=== PATIENT | male | born 1965 | race Caucasian/White ===

== ENCOUNTER 2016-12-04 12:47 | Outpatient (CLI) | payer MEDICAID | END 2016-12-04 12:48 | disposition critical access hospital (66) | LOC: EMS 12:47 | PROVIDERS: ATTEND Surgery | DX: R06.02 Shortness of breath (principal); L50.9 Urticaria, unspecified; R03.1 Nonspecific low blood-pressure reading | CPT/HCPCS: A0425; A0427 ==

== ENCOUNTER 2016-12-04 13:11 | Emergency (ER) | payer MEDICAID ==
[2016-12-04] MEDS ORDERED: SODIUM CHLORIDE 0.9% 1,000 ML IV ONE (13:23)
[2016-12-04] MEDS ORDERED: methylPREDNISolone SUCCINATE 125 MG/2 ML VIAL IVP STA (13:23)
[2016-12-04] MEDS ORDERED: FAMOTIDINE 20 MG/2 ML VIAL IVP STA (13:23)
[2016-12-04] MEDS ORDERED: NICOTINE 14 MG PATCH TOP STA (13:26)
--- NOTE | 2016-12-04 13:26 | ED Physician Documentation ---
History of Present Illness - Stated complaint Stated Complaint: ANAPHYLAXIS - Chief complaint Chief Complaint: Allergic Rx - History obtained from History obtained from: Patient - History of Present Illness Timing: Other (Healthy 50-year-old gentleman was putting on a shirt that he had not worn in a while and felt a bite or sting on the back of the left arm and immediately became hot all over with hives throughout and feeling like his face was numb. EMS was summoned and found him to be in anaphylaxis and he was administered 0.3 mg of epinephrine IM and 50 mg of Benadryl IV and put on epinephrine drip. He denies any throat swelling or shortness of breath at this juncture. He is not allergic to anything that we know of.) Review of Systems Ten Systems: 10 systems reviewed and negative Constitutional: denies: Fever, Chills Nose: denies: Rhinorrhea / runny nose, Congestion Throat: denies: Sore throat Cardiac: reports: Chest pain / pressure (gone). denies: Palpitations PD PAST MEDICAL HISTORY - Past Medical History Neuro: CVA GI: Hepatitis Psych: Depression - Past Surgical History Past Surgical History: No - Present Medications Home Medications: Ambulatory Orders Medication Instructions Recorded Confirmed Escitalopram Oxalate [Lexapro] 20 mg PO DAILY 09/26/15 09/26/15 Meclizine [Antivert] 25 mg PO Q6H #14 tablet 09/26/15 Ondansetron Odt [Zofran] 4 mg TL Q6H PRN #14 tablet 09/26/15 Epinephrine 0.3 mg IJ ONCE PRN #2 auto.injct 12/04/16 predniSONE [Deltasone] 60 mg PO DAILY 5 Days tablet 12/04/16 - Allergies Allergies/Adverse Reactions: Allergies Allergy/AdvReac Type Severity Reaction Status Date / Time No Known Drug Allergies Allergy Verified 12/04/16 13:15 - Social History Does the pt smoke?: Yes Smoking Status: Current every day smoker - Family History Family history: reports: Non contributory - Immunizations Immunizations are current?: No Immunizations: TDAP >10years/unknown PD ED PE NORMAL - Vitals Vital signs reviewed: Yes - General General: Alert and oriented X 3, No acute distress - HEENT HEENT: PERRL, EOMI, Pharynx benign - Neck Neck: Supple, no meningeal sign, No bony TTP - Cardiac Cardiac: RRR, No murmur - Respiratory Respiratory: No respiratory distress, Clear bilaterally - Abdomen Abdomen: Normal bowel sounds, Soft, Non tender - Back Back: No CVA TTP, No spinal TTP - Derm Derm: Other (He has diffuse urticaria) - Extremities Extremities: No edema, No calf tenderness / cord - Neuro Neuro: Alert and oriented X 3, Normal speech - Psych Psych: Normal mood, Normal affect Results - Vitals Vitals: Vital Signs - 24 hr 12/04/16 12/04/16 12/04/16 13:11 13:16 13:38 Temperature 36.8 C Heart Rate 70 69 Respiratory 20 17 Rate Blood Pressure 113/68 120/71 O2 Saturation 90 L 93 95 12/04/16 12/04/16 12/04/16 14:19 14:21 15:24 Temperature 36.6 C 37.0 C Heart Rate 63 78 Respiratory 13 15 Rate Blood Pressure 109/67 113/97 H O2 Saturation 98 98 12/04/16 12/04/16 16:26 17:16 Temperature 36.3 C L 36.5 C Heart Rate 65 80 Respiratory 12 14 Rate Blood Pressure 105/60 141/67 H O2 Saturation 99 99 Oxygen O2 Source Room air PD MEDICAL DECISION MAKING - ED course ED course: 50-year-old gentleman presents with anaphylaxis with unknown trigger, he received Solu-Medrol here in addition to the medications he received in route. Epinephrine drip was discontinued on arrival. He was observed for several hours without any worsening of his symptoms and gradual improvement in his rash. Departure - Departure Disposition: 01 Home, Self Care Clinical Impression: Anaphylactic reaction Qualifiers: Encounter type: initial encounter Qualified Code(s): T78.2XXA - Anaphylactic shock, unspecified, initial encounter Condition: Good Record reviewed to determine appropriate education?: Yes Instructions: ED Bite Sting Insect Gen Allergic React Prescriptions: Epinephrine 0.3 mg IJ ONCE PRN #2 auto.injct PRN Reason: Allergy Symptoms predniSONE [Deltasone] 60 mg PO DAILY 5 Days tablet Comments: Call your doctor to arrange a follow-up appointment, make the next available appointment. In the interim, return anytime if worse or if new symptoms develop. Discharge Date/Time: 12/04/16 17:39
[2016-12-04] MEDS ORDERED: methylPREDNISolone SUCCINATE 125 MG/2 ML VIAL ONE (13:33)
[2016-12-04] MEDS ORDERED: FAMOTIDINE 20 MG/2 ML VIAL ONE (13:33)
[2016-12-04] MEDS ORDERED: NICOTINE 14 MG PATCH TOP ONE (13:33)
[2016-12-04] MEDS ORDERED: SODIUM CHLORIDE FLUSH 0.9% 10 ML SYRINGE IVP ONE (13:34)
[2016-12-04 17:17] VITALS: BP 141/67
== END 2016-12-04 17:39 | disposition home or self-care (01) ==
LOC: ED 13:11
DX: T78.2XXA Anaphylactic shock, unspecified, initial encounter (principal); F17.200 Nicotine dependence, unspecified, uncomplicated
CPT/HCPCS: 96374; 96375; 99284; A9270

== ENCOUNTER 2016-12-15 08:00 | Outpatient (CLI) | payer MEDICAID | END 2016-12-15 08:01 | disposition home or self-care (01) | LOC: LAB.N 08:00 | PROVIDERS: ATTEND Nurse Practitioner Gerontology | DX: B19.20 Unspecified viral hepatitis C without hepatic coma (principal) | CPT/HCPCS: 36415; 87522 ==

== ENCOUNTER 2019-02-26 18:04 | Emergency (ER) | payer MEDICAID ==
[2019-02-26] MEDS ORDERED: BACITRACIN ZINC OINT 1 PACKET TOP STA (19:21)
[2019-02-26] MEDS ORDERED: oxyCODONE 5 MG TABLET PO STA (19:21)
[2019-02-26] MEDS ORDERED: AMOX/CLAV 875 MG/125 MG TABLET PO STA (19:21)
--- NOTE | 2019-02-26 19:23 | ED Physician Documentation ---
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 He was in [place] working when he noticed a blister starting to form on the left thumb. He states that this filled with pus. He drained it himself with a needle. He states that it has been doing better since that time, but started having swelling and redness to the area again today. No fevers. Tetanus is up-to-date. Worse with movement and better with rest. Patient is right-handed Patient also states that he has been out of his Lexapro for the last month. Review of Systems Constitutional: denies: Fever, Chills GI: denies: Vomiting, Diarrhea Skin: denies: Rash Musculoskeletal: denies: Neck pain, Back pain Neurologic: denies: Headache PD PAST MEDICAL HISTORY - Past Medical History Past Medical History: Yes Cardiovascular: None Respiratory: None Neuro: None Endocrine/Autoimmune: None GI: Hepatitis : None HEENT: None Psych: Depression Musculoskeletal: None Derm: None - Past Surgical History Past Surgical History: No - Present Medications Home Medications: Ambulatory Orders Medication Instructions Recorded Confirmed Escitalopram Oxalate [Lexapro] 20 mg PO DAILY 09/26/15 09/26/15 Meclizine [Antivert] 25 mg PO Q6H #14 tablet 09/26/15 Ondansetron Odt [Zofran] 4 mg TL Q6H PRN #14 tablet 09/26/15 EPINEPHrine [Epinephrine] 0.3 mg IJ ONCE PRN #2 auto.injct 12/04/16 predniSONE [Deltasone] 60 mg PO DAILY 5 Days tablet 12/04/16 Cephalexin [Keflex] 500 mg PO Q6H #28 capsule 02/26/19 Escitalopram [Lexapro] 10 mg PO DAILY #14 tablet 02/26/19 Oxycodone HCl/Acetaminophen 1 - 2 each PO Q6H PRN #14 tablet 02/26/19 [Percocet 5-325 mg Tablet] Sulfamethox/Trimeth 800/160 1 each PO BID #14 tablet 02/26/19 [Bactrim Ds 800/160] - Allergies Allergies/Adverse Reactions: Allergies Allergy/AdvReac Type Severity Reaction Status Date / Time No Known Drug Allergies Allergy Verified 02/26/19 18:16 - Social History Does the pt smoke?: Yes Smoking Status: Current every day smoker Does the pt drink ETOH?: Yes Does the pt have substance abuse?: No - Immunizations Immunizations are current?: No Immunizations: TDAP >10years/unknown - POLST Patient has POLST: No PD ED PE NORMAL - Vitals Vital signs reviewed: Yes - General General: Alert and oriented X 3, No acute distress - HEENT HEENT: Moist mucous membranes - Neck Neck: Supple, no meningeal sign - Cardiac Cardiac: RRR - Respiratory Respiratory: No respiratory distress, Clear bilaterally - Derm Derm: Warm and dry - Extremities Extremities: Other (L thumb - 2 x 3 cm area of open skin with mild redness. No streaking. No evidence of deep space infection in the hand. No tenderness over the palm. Full range of motion of all fingers and joints without pain.) - Neuro Neuro: Alert and oriented X 3 Results - Vitals Vitals: Vital Signs - 24 hr 02/26/19 02/26/19 02/26/19 18:14 18:38 20:06 Temperature 36.7 C 36.4 C L 36.3 C L Heart Rate 81 75 89 Respiratory 16 18 16 Rate Blood Pressure 120/79 98/83 H 112/79 O2 Saturation 98 98 93 Oxygen O2 Source Room air PD MEDICAL DECISION MAKING - ED course Complexity details: considered differential, d/w patient ED course: Patient appears to have a mild cellulitis of the left thumb. Will place on antibiotics and pain medication for this. He is well-appearing, nontoxic. Afebrile. No evidence of osteomyelitis. Tdap is up-to-date. We will refill his Lexapro as well. Warnings of infection and instructions on wound care given at bedside. Also counseled on how to minimize scarring. Patient counseled regarding signs and symptoms for which I believe and urgent re-evaluation would be necessary. Patient with good understanding of and agreement to plan and is comfortable going home at this time This document was made in part using voice recognition software. While efforts are made to proofread this document, sound alike and grammatical errors may occur. Departure - Departure Disposition: 01 Home, Self Care Clinical Impression: Cellulitis Qualifiers: Site of cellulitis: extremity Site of cellulitis of extremity: upper extremity Laterality: left Qualified Code(s): L03.114 - Cellulitis of left upper limb Condition: Good Instructions: ED Infec Skin Cellulitis Follow-Up: Alana Valdez ARNP [Primary Care Provider] - Within 3 Days Prescriptions: Cephalexin [Keflex] 500 mg PO Q6H #28 capsule Escitalopram [Lexapro] 10 mg PO DAILY #14 tablet Oxycodone HCl/Acetaminophen [Percocet 5-325 mg Tablet] 1 - 2 each PO Q6H PRN #14 tablet PRN Reason: pain Sulfamethox/Trimeth 800/160 [Bactrim Ds 800/160] 1 each PO BID #14 tablet Comments: Take all antibiotics until gone. Return if you worsen. Call the clinic on Thursday to find out your Lexapro dose of that they can call in a refill for you. As we do not know your dose tonight, or know if they want to taper you back up to your usual dose, we will have them handle the refill. Do not drink alcohol or drive while on narcotic pain medicine. Note that many narcotic pain relievers also contain tylenol/acetaminophen. Please ensure that your total dose of acetaminophen from all sources does not exceed 3 grams (3000mg) per day. You may constipated on this medication, take a stool softener such as "Colace" twice a day while you are on it. Also recommend a dvqk-smy-wzwmcle laxative such as senna or MiraLAX any day that you do not have a bowel movement. If you received narcotic pain medication in the emergency department, do not drive or operate machinery for the next 24 hours. Discharge Date/Time: 02/26/19 20:21
[2019-02-26 20:07] VITALS: BP 112/79
== END 2019-02-26 20:21 | disposition home or self-care (01) ==
LOC: ED 18:04
DX: L03.012 Cellulitis of left finger (principal); Z76.0 Encounter for issue of repeat prescription; F32.9 Major depressive disorder, single episode, unspecified; F17.200 Nicotine dependence, unspecified, uncomplicated
CPT/HCPCS: 99283; 99284; A9270

== ENCOUNTER 2019-03-10 13:34 | Outpatient (CLI) | payer MEDICAID ==
--- NOTE | 2019-03-10 15:19 | XRAY Report ---
Reason: CELLULITIS Procedure Date: 03/10/2019 Accession Number: [id number] / [id number] Procedure: XRN - Hand 3 View LT CPT Code: Final Report FULL RESULT: EXAM: LEFT HAND RADIOGRAPHY. EXAM DATE: 03/10/2019 01:58 PM. CLINICAL HISTORY: Cellulitis. COMPARISON: None. TECHNIQUE: 3 views. FINDINGS: Bones: Normal. No fractures or bone lesions. Joints: Normal. No subluxations. Soft Tissues: No soft tissue gas or radiopaque foreign bodies detected. IMPRESSION: No soft tissue gas or radiopaque foreign body. RADIA
== END 2019-03-10 13:35 | disposition home or self-care (01) ==
LOC: DI.N 13:34
PROVIDERS: ATTEND Family Medicine
DX: L03.90 Cellulitis, unspecified (principal); B19.20 Unspecified viral hepatitis C without hepatic coma; L03.012 Cellulitis of left finger
CPT/HCPCS: 36415; 80076; 85027; 85651; 86140; 86803

== ENCOUNTER 2019-03-10 14:00 | Outpatient (CLI) | payer MEDICAID ==
[2019-03-10 18:37] LABS: HGB - HEMOGLOBIN 13.2 g/dL (14.0-18.0); MEAN CORPUSCULAR HEMOGLOBIN 30.8 pg (27.0-31.0); MEAN CORPUSCULAR HGB CONC 33.2 g/dL (32.0-36.0); MEAN CORPUSCULAR VOLUME 92.5 fL (80.0-94.0); MEAN PLATELET VOLUME 10.8 fL (7.4-11.4); RED BLOOD COUNT 4.29 10^6/uL (4.70-6.10); RED CELL DISTRIBUTION WIDTH 12.8 % (12.0-15.0); WHITE BLOOD COUNT 5.2 x10^3/uL (4.8-10.8)
[2019-03-10 19:08] LABS: ALBUMIN 3.6 g/dL (3.2-5.5); ALKALINE PHOSPHATASE 104 IU/L (42-121); ALT ALANINE AMINOTRANSFERASE 384 IU/L (10-60); AST ASPARTATE AMINOTRANSFERASE 238 IU/L (10-42); BILIRUBIN,DIRECT 0.1 mg/dL (0.1-0.5); BILIRUBIN,TOTAL 0.6 mg/dL (0.2-1.0); TOTAL PROTEIN 7.3 g/dL (6.7-8.2)
[2019-03-10 19:44] LABS: CRP - C-REACTIVE PROTEIN < 1.0 mg/dL (0-1.0)
[2019-03-11 12:01] LABS: HEPATITIS C ANTIBODY REACTIVE (NON-REACTIVE)
[2019-03-14 18:39] LABS: HCV RNA QNT 5.99 Log IU/mL (NOT DETECTED); HCV RNA QUANT RT PCR 985000 IU/mL (NOT DETECTED)
== END 2019-03-10 23:59 | disposition home or self-care (01) ==
LOC: LAB.N 14:00
PROVIDERS: ATTEND Family Medicine
DX: B19.20 Unspecified viral hepatitis C without hepatic coma (principal); L03.012 Cellulitis of left finger
CPT/HCPCS: 36415; 80076; 85027; 85651; 86140; 86803

== ENCOUNTER 2019-08-07 16:46 | Outpatient (CLI) | payer MEDICAID | END 2019-08-07 16:47 | disposition critical access hospital (66) | LOC: EMS 16:46 | PROVIDERS: ATTEND Surgery | DX: R46.89 Other symptoms and signs involving appearance and behavior (principal) | CPT/HCPCS: A0425; A0429; A0999 ==

== ENCOUNTER 2019-08-07 17:06 | Emergency (ER) | payer MEDICAID ==
[2019-08-07 17:26] LABS: BASOPHILS # (AUTO) 0.1 10^3/uL (0.0-0.1); EOSINOPHILS # (AUTO) 0.3 10^3/uL (0.0-0.7); EOSINOPHILS % (AUTO) 3.4 %; HGB - HEMOGLOBIN 13.8 g/dL (14.0-18.0); LYMPHOCYTES # (AUTO) 3.3 10^3/uL (1.5-3.5); LYMPHOCYTES % (AUTO) 35.3 %; MEAN CORPUSCULAR HEMOGLOBIN 30.5 pg (27.0-31.0); MEAN CORPUSCULAR HGB CONC 33.6 g/dL (32.0-36.0); MEAN CORPUSCULAR VOLUME 90.9 fL (80.0-94.0); MEAN PLATELET VOLUME 9.3 fL (7.4-11.4); MONOCYTES # (AUTO) 1.3 10^3/uL (0.0-1.0); MONOCYTES % (AUTO) 14.2 %; NEUTROPHILS # (AUTO) 4.2 10^3/uL (1.5-6.6); NEUTROPHILS % (AUTO) 45.9 %; PLT - PLATELET COUNT 278 10^3/uL (130-450); RED BLOOD COUNT 4.52 10^6/uL (4.70-6.10); RED CELL DISTRIBUTION WIDTH 12.7 % (12.0-15.0); WHITE BLOOD COUNT 9.2 x10^3/uL (4.8-10.8)
--- NOTE | 2019-08-07 17:37 | ED Physician Documentation ---
PD HPI MHE - Stated complaint Stated Complaint: MHE - Chief complaint Chief Complaint: MHE - History obtained from History obtained from: Patient, EMS - History of Present Illness Primary symptom: No: Suicidal ideation, Homicidal ideation, Psychosis, Depression, Manic, Aggressive behavior Pain level max: 0 Pain level now: 0 Contributing factors: Out of meds Recently seen: Not recently seen - Additional information Additional information: patient states he is out of his lexapro and needs a refill. 20mg PO daily. Denies SI/ HI or hallucinations. Review of Systems Ten Systems: 10 systems reviewed and negative Constitutional: denies: Fever, Chills Respiratory: denies: Cough GI: denies: Nausea, Vomiting, Diarrhea Skin: denies: Rash Musculoskeletal: denies: Neck pain, Back pain Neurologic: denies: Headache PD PAST MEDICAL HISTORY - Past Medical History Cardiovascular: None Respiratory: None Neuro: None Endocrine/Autoimmune: None GI: Hepatitis : None HEENT: None Psych: Depression Musculoskeletal: None Derm: None - Past Surgical History Past Surgical History: No - Present Medications Home Medications: Ambulatory Orders Medication Instructions Recorded Confirmed Escitalopram [Lexapro] 10 mg PO DAILY #14 tablet 02/26/19 Escitalopram Oxalate [Lexapro] 20 mg PO DAILY #14 tablet 08/07/19 - Allergies Allergies/Adverse Reactions: Allergies Allergy/AdvReac Type Severity Reaction Status Date / Time No Known Drug Allergies Allergy Verified 08/07/19 17:26 - Social History Does the pt smoke?: Yes Smoking Status: Current every day smoker Does the pt drink ETOH?: Yes Does the pt have substance abuse?: No - Immunizations Immunizations are current?: No Immunizations: TDAP >10years/unknown - POLST Patient has POLST: No PD ED PE NORMAL - Vitals Vital signs reviewed: Yes - General General: Alert and oriented X 3, No acute distress - HEENT HEENT: Moist mucous membranes - Neck Neck: Supple, no meningeal sign - Cardiac Cardiac: RRR, Strong equal pulses - Respiratory Respiratory: No respiratory distress, Clear bilaterally - Abdomen Abdomen: Soft, Non tender, Non distended - Derm Derm: Warm and dry - Extremities Extremities: No edema - Neuro Neuro: Alert and oriented X 3 - Psych Psych: Normal mood, Normal affect Results - Vitals Vitals: Vital Signs - 24 hr 08/07/19 08/07/19 08/07/19 17:10 17:26 18:47 Temperature 36.6 C 36.6 C 36.6 C Heart Rate 93 93 88 Respiratory 18 18 16 Rate Blood Pressure 127/86 H 127/86 H 126/88 H O2 Saturation 99 99 100 Oxygen O2 Source Room air - Labs Labs: Laboratory Tests 08/07/19 08/07/19 08/07/19 17:20 17:20 17:20 WBC 9.2 RBC 4.52 L Hgb 13.8 L Hct 41.1 L MCV 90.9 MCH 30.5 MCHC 33.6 RDW 12.7 Plt Count 278 MPV 9.3 Neut # (Auto) 4.2 Lymph # (Auto) 3.3 [place] # (Auto) 1.3 H Eos # (Auto) 0.3 Baso # (Auto) 0.1 Absolute Nucleated RBC 0.00 Nucleated RBC % 0.0 Sodium 139 Potassium 3.9 Chloride 99 L Carbon Dioxide 29 Anion Gap 11.0 BUN 29 H Creatinine 0.8 Estimated GFR (MDRD) 101 Glucose 99 Calcium 9.9 Total Bilirubin 0.8 AST 105 H ALT 116 H Alkaline Phosphatase 76 Total Protein 8.8 H Albumin 4.6 Globulin 4.2 Albumin/Globulin Ratio 1.1 Lipase 39 TSH 1.85 Urine Color Urine Clarity Urine pH Ur Specific [place] Urine Protein Urine Glucose (UA) Urine Ketones Urine Occult Blood Urine Nitrite Urine Bilirubin Urine Urobilinogen Ur Leukocyte Esterase Ur Microscopic Review Urine Culture Comments Salicylates < 6.0 Urine Opiates Screen Ur Oxycodone Screen Urine Methadone Screen Ur Propoxyphene Screen Acetaminophen < 10 L Ur Barbiturates Screen Ur Tricyclics Screen Ur Phencyclidine Scrn Ur Amphetamine Screen U Methamphetamines Scrn U Benzodiazepines Scrn Urine Cocaine Screen U Cannabinoids Screen Ethyl Alcohol < 5.0 08/07/19 17:48 WBC RBC Hgb Hct MCV MCH MCHC RDW Plt Count MPV Neut # (Auto) Lymph # (Auto) [place] # (Auto) Eos # (Auto) Baso # (Auto) Absolute Nucleated RBC Nucleated RBC % Sodium Potassium Chloride Carbon Dioxide Anion Gap BUN Creatinine Estimated GFR (MDRD) Glucose Calcium Total Bilirubin AST ALT Alkaline Phosphatase Total Protein Albumin Globulin Albumin/Globulin Ratio Lipase TSH Urine Color YELLOW Urine Clarity CLEAR Urine pH 5.0 Ur Specific [place] >=1.030 H Urine Protein NEGATIVE Urine Glucose (UA) NEGATIVE Urine Ketones NEGATIVE Urine Occult Blood NEGATIVE Urine Nitrite NEGATIVE Urine Bilirubin NEGATIVE Urine Urobilinogen 0.2 (NORMAL) Ur Leukocyte Esterase NEGATIVE Ur Microscopic Review NOT INDICATED Urine Culture Comments NOT INDICATED Salicylates Urine Opiates Screen POSITIVE H Ur Oxycodone Screen NEGATIVE Urine Methadone Screen NEGATIVE Ur Propoxyphene Screen NEGATIVE Acetaminophen Ur Barbiturates Screen NEGATIVE Ur Tricyclics Screen NEGATIVE Ur Phencyclidine Scrn NEGATIVE Ur Amphetamine Screen POSITIVE H U Methamphetamines Scrn POSITIVE H U Benzodiazepines Scrn NEGATIVE Urine Cocaine Screen NEGATIVE U Cannabinoids Screen NEGATIVE Ethyl Alcohol PD MEDICAL DECISION MAKING - ED course Complexity details: reviewed old records, reviewed results, re-evaluated patient, considered differential, d/w patient ED course: Patient denies any suicidal or homicidal statements. Police report was reviewed and it appears that he is here voluntarily. The police report states he does not meet criteria for an involuntary treatment act. There was initially question of suicidal ideation, but upon further investigation with the mother, the police worker states that the patient never stated he was suicidal. He is actually looking forward to starting a new job in the morning. Patient has been using methamphetamine as well. This could be some of the manic type symptoms that were described. He is calm and cooperative here. Appears lucid. He is not tangential. We will restart him on his Lexapro and have him follow-up with his doctor. Patient counseled regarding signs and symptoms for which I believe and urgent re-evaluation would be necessary. Patient with good understanding of and agreement to plan and is comfortable going home at this time This document was made in part using voice recognition software. While efforts are made to proofread this document, sound alike and grammatical errors may oc cur. Departure - Departure Disposition: 01 Home, Self Care Clinical Impression: Bipolar 1 disorder, Methamphetamine abuse Condition: Good Instructions: ED Manic Depression, ED Drug Abuse General Follow-Up: GLADIS ISRAEL MD [Primary Care Provider] - Within 1 week Prescriptions: Escitalopram Oxalate [Lexapro] 20 mg PO DAILY #14 tablet Comments: Please stop using methamphetamines. Follow-up with your doctor for further refills of your Lexapro. Return if you worsen. Crisis Line and is available to talk to someone [email or web address] is also available 24/7/365 to chat with someone online if you prefer. There are also many resources on this website and apps for your phone to help with your mental health You can also text the word START to [phone] to chat with someome via text. Discharge Date/Time: 08/07/19 18:47
[2019-08-07 17:40] LABS: ACETAMINOPHEN < 10 ug/mL (10-30); ALBUMIN 4.6 g/dL (3.2-5.5); ALBUMIN/GLOBULIN RATIO 1.1 (1.0-2.2); ALKALINE PHOSPHATASE 76 IU/L (42-121); ALT ALANINE AMINOTRANSFERASE 116 IU/L (10-60); AST ASPARTATE AMINOTRANSFERASE 105 IU/L (10-42); BILIRUBIN,TOTAL 0.8 mg/dL (0.2-1.0); BUN - BLOOD UREA NITROGEN 29 mg/dL (6-20); CALCIUM 9.9 mg/dL (8.5-10.3); CARBON DIOXIDE - CO2 29 mmol/L (21-32); CHLORIDE 99 mmol/L (101-111); CREATININE 0.8 mg/dL (0.6-1.2); GLUCOSE 99 mg/dL (70-100); LIPASE 39 U/L (22-51); SALICYLATE < 6.0 mg/dL; SODIUM 139 mmol/L (135-145); TOTAL PROTEIN 8.8 g/dL (6.7-8.2)
[2019-08-07] MEDS ORDERED: ESCITALOPRAM 10 MG TABLET PO STA (17:57)
[2019-08-07 18:06] LABS: MUDS CUTOFF CONCENTRATIONS CUTOFF CONC BELOW:
[2019-08-07 18:11] LABS: BILIRUBIN,URINE NEGATIVE (NEGATIVE); GLUCOSE, URINE (UA) NEGATIVE (NEGATIVE); KETONES,URINE (UA) NEGATIVE (NEGATIVE); LEUKOCYTE ESTERASE, URINE NEGATIVE (NEGATIVE); NITRITE,URINE NEGATIVE (NEGATIVE); OCCULT BLOOD,URINE NEGATIVE (NEGATIVE); PROTEIN,URINE NEGATIVE (NEGATIVE); UROBILINOGEN,URINE 0.2 (NORMAL) E.U./dL (NORMAL)
[2019-08-07 18:13] LABS: CLARITY,URINE CLEAR (CLEAR)
[2019-08-07 18:28] LABS: AMPHETAMINE SCREEN,URINE POSITIVE (NEGATIVE); BENZODIAZEPINES SCREEN, URINE NEGATIVE (NEGATIVE); COCAINE SCREEN URINE NEGATIVE (NEGATIVE); METHADONE SCREEN, URINE NEGATIVE (NEGATIVE); METHAMPHETAMINES SCREEN, URINE POSITIVE (NEGATIVE); OPIATE SCREEN, URINE POSITIVE (NEGATIVE); OXYCODONE SCREEN, URINE NEGATIVE (NEGATIVE); PROPOXYPHENE SCREEN, URINE NEGATIVE (NEGATIVE); TRICYCLIC ANTIDEPRESSANT,URINE NEGATIVE (NEGATIVE)
[2019-08-07 18:48] VITALS: BP 126/88
== END 2019-08-07 18:47 | disposition home or self-care (01) ==
LOC: EDUNIT# → ED 17:06
DX: F31.9 Bipolar disorder, unspecified (principal); F15.10 Other stimulant abuse, uncomplicated; F17.200 Nicotine dependence, unspecified, uncomplicated
CPT/HCPCS: 36415; 80053; 80306; 80307; 80320; 80329; 81003; 83690; 84443; 85025; 99283; A9270; 81001; 87086

== ENCOUNTER 2020-01-20 10:23 | Outpatient (CLI) | payer MEDICAID ==
--- NOTE | 2020-01-20 11:38 | Ultrasound Report ---
PROCEDURE: Abdomen Limited INDICATIONS: Hepatitis C TECHNIQUE: Real-time focused scanning was performed of the abdomen, with image documentation. COMPARISON: None. FINDINGS: Increased hepatic parenchymal echogenicity with mildly coarsened hepatic echotexture. The hepatic con tour appears smooth without nodularity to indicate cirrhosis. No sonographic evidence of hepatic mass . No intrahepatic or extrahepatic biliary ductal dilatation. Mildly echogenic sludge layers dependently within the gallbladder. No abnormal distention or wall thi ckening of the gallbladder to indicate cholecystitis. Normal size and appearance of the right kidney. Visualized portions of the proximal pancreas are within normal limits. IMPRESSION: Coarsened hepatic echotexture and increased hepatic parenchymal echogenicity, nonspecific but consist ent with chronic viral hepatitis as indicated in history. No sonographic features of cirrhosis. Reviewed by: Steven Simental MD on 01/20/2020 11:37 AM PST Approved by: Steven Simental MD on 01/20/2020 11:37 AM PST Station ID: [id number]
== END 2020-01-20 10:24 | disposition home or self-care (01) ==
LOC: DI 10:23
PROVIDERS: ATTEND Nurse Practitioner
DX: R93.2 Abnormal findings on diagnostic imaging of liver and biliary tract (principal)
CPT/HCPCS: 76705

== ENCOUNTER 2020-01-27 10:41 | Outpatient (CLI) | payer MEDICAID ==
[2020-01-27 11:01] LABS: BASOPHILS # (AUTO) 0.1 10^3/uL (0.0-0.1); BASOPHILS % (AUTO) 1.2 %; EOSINOPHILS # (AUTO) 0.3 10^3/uL (0.0-0.7); EOSINOPHILS % (AUTO) 4.2 %; HGB - HEMOGLOBIN 12.8 g/dL (14.0-18.0); LYMPHOCYTES % (AUTO) 45.2 %; MEAN CORPUSCULAR HGB CONC 33.2 g/dL (32.0-36.0); MEAN CORPUSCULAR VOLUME 90.6 fL (80.0-94.0); MEAN PLATELET VOLUME 9.5 fL (7.4-11.4); MONOCYTES # (AUTO) 0.8 10^3/uL (0.0-1.0); MONOCYTES % (AUTO) 11.3 %; NEUTROPHILS # (AUTO) 2.5 10^3/uL (1.5-6.6); NEUTROPHILS % (AUTO) 37.6 %; PLT - PLATELET COUNT 269 10^3/uL (130-450); RED BLOOD COUNT 4.26 10^6/uL (4.70-6.10); WHITE BLOOD COUNT 6.6 x10^3/uL (4.8-10.8)
[2020-01-27 11:20] LABS: ALBUMIN 3.9 g/dL (3.2-5.5); ALBUMIN/GLOBULIN RATIO 1.1 (1.0-2.2); ALKALINE PHOSPHATASE 76 IU/L (42-121); ALT ALANINE AMINOTRANSFERASE 74 IU/L (10-60); AST ASPARTATE AMINOTRANSFERASE 37 IU/L (10-42); BILIRUBIN,TOTAL 0.5 mg/dL (0.2-1.0); BUN - BLOOD UREA NITROGEN 18 mg/dL (6-20); CALCIUM 9.1 mg/dL (8.5-10.3); CARBON DIOXIDE - CO2 28 mmol/L (21-32); CHLORIDE 99 mmol/L (101-111); CHOL/HDL RATIO 2.2 (<5.0); CHOLESTEROL 228 mg/dL; CREATININE 0.9 mg/dL (0.6-1.2); GLUCOSE 87 mg/dL (70-100); HDL CHOLESTEROL 105 mg/dL; LDL CHOLESTEROL,CALCULATED 97 mg/dL; LDL/HDL RATIO 0.9 (<3.6); SODIUM 137 mmol/L (135-145); TOTAL PROTEIN 7.6 g/dL (6.7-8.2); VLDL CHOLESTEROL 26 mg/dL
[2020-01-27 11:34] LABS: THYROID STIMULATING HORMONE 2.22 uIU/mL (0.34-5.60)
[2020-01-27 11:36] LABS: FREE T4 (FREE THYROXINE) 0.58 ng/dL (0.58-1.64)
[2020-01-28 13:21] LABS: HEPATITIS C ANTIBODY REACTIVE (NON-REACTIVE)
== END 2020-01-27 10:42 | disposition home or self-care (01) ==
LOC: LAB 10:41
PROVIDERS: ATTEND Nurse Practitioner
DX: B19.20 Unspecified viral hepatitis C without hepatic coma (principal); F41.8 Other specified anxiety disorders; Z13.9 Encounter for screening, unspecified
CPT/HCPCS: 36415; 80053; 80061; 83721; 84439; 84443; 85025; 86803

== ENCOUNTER 2020-04-02 08:00 | Outpatient (CLI) | payer MEDICAID ==
[2020-04-02 11:00] LABS: BASOPHILS # (AUTO) 0.1 10^3/uL (0.0-0.1); BASOPHILS % (AUTO) 1.3 %; EOSINOPHILS # (AUTO) 0.5 10^3/uL (0.0-0.7); EOSINOPHILS % (AUTO) 6.5 %; HGB - HEMOGLOBIN 13.5 g/dL (14.0-18.0); LYMPHOCYTES # (AUTO) 4.4 10^3/uL (1.5-3.5); MEAN CORPUSCULAR HEMOGLOBIN 29.7 pg (27.0-31.0); MEAN CORPUSCULAR HGB CONC 32.6 g/dL (32.0-36.0); MEAN PLATELET VOLUME 10.1 fL (7.4-11.4); MONOCYTES # (AUTO) 0.5 10^3/uL (0.0-1.0); MONOCYTES % (AUTO) 6.7 %; NEUTROPHILS % (AUTO) 26.4 %; PLT - PLATELET COUNT 315 10^3/uL (130-450); RED BLOOD COUNT 4.55 10^6/uL (4.70-6.10); RED CELL DISTRIBUTION WIDTH 12.7 % (12.0-15.0); WHITE BLOOD COUNT 7.4 x10^3/uL (4.8-10.8)
[2020-04-02 11:16] LABS: ALBUMIN 3.8 g/dL (3.2-5.5); ALBUMIN/GLOBULIN RATIO 1.1 (1.0-2.2); BILIRUBIN,TOTAL 0.5 mg/dL (0.2-1.0); CALCIUM 9.4 mg/dL (8.5-10.3); CREATININE 0.6 mg/dL (0.6-1.2); TOTAL PROTEIN 7.3 g/dL (6.7-8.2)
[2020-04-03 12:37] LABS: HEPATITIS A IGM NON-REACTIVE (NON-REACTIVE); HEPATITIS B SURFACE ANTIGEN NON-REACTIVE (NON-REACTIVE); HEPATITIS C ANTIBODY REACTIVE (NON-REACTIVE)
== END 2020-04-02 23:59 | disposition home or self-care (01) ==
LOC: LAB 08:00
PROVIDERS: ATTEND Physician Assistant
DX: B18.2 Chronic viral hepatitis C (principal)
CPT/HCPCS: 36415; 80053; 80074; 81599; 85025; 87522

== ENCOUNTER 2020-05-14 10:15 | Outpatient (CLI) | payer MEDICAID ==
[2020-05-14 10:48] LABS: BASOPHILS # (AUTO) 0.1 10^3/uL (0.0-0.1); BASOPHILS % (AUTO) 1.5 %; EOSINOPHILS # (AUTO) 0.6 10^3/uL (0.0-0.7); EOSINOPHILS % (AUTO) 6.4 %; HCT - HEMATOCRIT 41.4 % (42.0-52.0); HGB - HEMOGLOBIN 13.8 g/dL (14.0-18.0); LYMPHOCYTES % (AUTO) 42.7 %; MEAN CORPUSCULAR HEMOGLOBIN 30.1 pg (27.0-31.0); MEAN CORPUSCULAR HGB CONC 33.3 g/dL (32.0-36.0); MEAN CORPUSCULAR VOLUME 90.4 fL (80.0-94.0); MEAN PLATELET VOLUME 9.4 fL (7.4-11.4); MONOCYTES # (AUTO) 0.9 10^3/uL (0.0-1.0); MONOCYTES % (AUTO) 9.2 %; NEUTROPHILS # (AUTO) 3.7 10^3/uL (1.5-6.6); NEUTROPHILS % (AUTO) 39.8 %; PLT - PLATELET COUNT 324 10^3/uL (130-450); RED BLOOD COUNT 4.58 10^6/uL (4.70-6.10); RED CELL DISTRIBUTION WIDTH 13.2 % (12.0-15.0); WHITE BLOOD COUNT 9.3 x10^3/uL (4.8-10.8)
[2020-05-14 11:02] LABS: ALBUMIN 4.2 g/dL (3.2-5.5); ALBUMIN/GLOBULIN RATIO 1.1 (1.0-2.2); BILIRUBIN,TOTAL 0.5 mg/dL (0.2-1.0); CALCIUM 10.3 mg/dL (8.5-10.3); CREATININE 0.7 mg/dL (0.6-1.2); POTASSIUM 4.6 mmol/L (3.5-5.0); TOTAL PROTEIN 8.2 g/dL (6.7-8.2)
[2020-05-16 23:16] LABS: HCV RNA QUANT RT PCR <15 DETECTED IU/mL
== END 2020-05-14 10:16 | disposition home or self-care (01) ==
LOC: LAB 10:15
PROVIDERS: ATTEND Physician Assistant
DX: B18.2 Chronic viral hepatitis C (principal)
CPT/HCPCS: 36415; 80053; 85025; 87522

== ENCOUNTER 2021-02-12 08:00 | Outpatient (CLI) | payer MEDICAID | END 2021-02-12 23:59 | LOC: LAB.S 08:00 | PROVIDERS: ATTEND Emergency Medicine | DX: U07.1 COVID-19 (principal) ==

== ENCOUNTER 2023-03-20 12:52 | Outpatient (CLI) | payer MEDICAID ==
--- NOTE | 2023-03-25 11:21 | CT Report ---
PROCEDURE: Lung Cancer Screen INDICATIONS: NICOTINE DEPENDENCE TECHNIQUE: A CT scan of the chest was performed. Intravenous contrast media was not administered. Images were re corded and evaluated at appropriate window settings. Reformats: axial MIP of the chest, coronal and s agittal. For radiation dose reduction, the following was used: automated exposure control, adjustment of mA and/or kV according to patient size. COMPARISON: None. FINDINGS: Image quality: Excellent. Prior cancer history: Lungs and pleura: No pleural effusions. No pneumothorax. No suspicious pulmonary nodules which requi re follow up. Mediastinum: Heart size is normal. No pericardial effusion. No large vessel abnormality. No mediastin al adenopathy by size criteria. Minimal atherosclerotic calcification of a coronary vessel. Chest wall and lower neck: Thyroid is unremarkable. No axillary or supraclavicular adenopathy by size . Bones: No aggressive osseous abnormality. Upper Abdomen: Unremarkable. IMPRESSION: Lung RAD: 0 Recommendation: Continue annual follow-up Non-Lung Significant Findings: Minimal atherosclerotic calcification of a coronary vessel. Reviewed by: Lyndon Loza MD on 03/20/2023 2:59 PM PST Approved by: Lyndon Loza MD on 03/20/2023 2:59 PM PST Station ID: [id number]
== END 2023-03-20 12:53 | disposition home or self-care (01) ==
LOC: DI 12:52
PROVIDERS: ATTEND Physician Assistant Medical
DX: Z12.2 Encounter for screening for malignant neoplasm of respiratory organs (principal); F17.200 Nicotine dependence, unspecified, uncomplicated

== ENCOUNTER 2023-06-23 12:56 | Emergency (ER) | payer MEDICAID ==
[2023-06-23 13:22] VITALS: O2SAT 100
[2023-06-23] MEDS: LIDOCAINE 2%-EPI 1:100000 20 ML MDV SUBQ STA (14:25)
[2023-06-23] MEDS: BUPIVACAINE 0.5%-EPI 1:200000 PF 30 ML VIAL SUBQ ONE (14:25)
--- NOTE | 2023-06-23 15:29 | ED Physician Documentation ---
PD HPI SKIN - Stated complaint Stated Complaint: BACK LUMP - Chief complaint Chief Complaint: Wound - Additional information Additional information: 57-year-old male with history of IV drug use presents emergency department for left subscapular lump. Patient said a couple days ago he noticed that every time he would roll over he felt some tenderness to the subscapular region he originally thought it was just as it that was irritated. Today he noticed increased inflammation and swelling no fevers or chills but said that he was having hard time dealing with the pain so he wanted to come to the emergency department for evaluation. PD PAST MEDICAL HISTORY - Past Medical History Past Medical History: Yes Cardiovascular: None Respiratory: None Neuro: None Endocrine/Autoimmune: None GI: Hepatitis : None HEENT: None Psych: Depression Musculoskeletal: None Derm: None - Past Surgical History Past Surgical History: No - Present Medications Home Medications: Ambulatory Orders Medication Instructions Recorded Confirmed Escitalopram Oxalate [Lexapro] 20 mg PO DAILY #14 tablet 08/07/19 06/23/23 Cimetidine 200 mg PO DAILY 06/23/23 06/23/23 cephALEXin [Keflex] 500 mg PO Q6H 5 Days #28 cap 06/23/23 - Allergies Allergies/Adverse Reactions: Allergies Allergy/AdvReac Type Severity Reaction Status Date / Time No Known Drug Allergies Allergy Verified 06/23/23 13:15 - Social History Does the pt smoke?: Yes Smoking Status: Current every day smoker Does the pt drink ETOH?: Yes ETOH Use: Beer Does the pt have substance abuse?: No - Immunizations Immunizations are current?: Yes Immunizations: TDAP >10years/unknown - POLST Patient has POLST: No PD ED PE NORMAL - Vitals Vital signs reviewed: Yes - General General: Alert and oriented X 3, No acute distress, Well developed/nourished - HEENT HEENT: Atraumatic - Extremities Extremities: Other (Left subscapular erythema with warmth 2 to 3 cm mass without fluctuance.) - Psych Psych: Normal mood, Normal affect Results - Vitals Vitals: Vital Signs - 24 hr 06/23/23 06/23/23 13:15 15:36 Temperature 36.9 C Heart Rate 88 77 Respiratory 16 18 Rate Blood Pressure 114/67 131/68 H O2 Saturation 100 100 Oxygen O2 Source Room air Procedures - Abscess I&D (location) Back left Other Preparation: Betadine, Alcohol, Lidocaine 1% Incision: Incised with scalpel, Purulent drainage, Loculations broken, Irrigated, Packed Other: Pt tolerated well, Dressing applied, Antibiotic prescribed PD Medical Decision Making - ED course ED course: 57-year-old male presents emergency department for left subscapular mass. Given the erythema although there is not a lot of fluctuance it did appear to be infected. A 1.5 cm laceration was made over the top of the infected area and a large volume of purulent drainage was extracted. It did appear to be an infected sebaceous cyst. I attempted to remove majority of the sac but it was not able to remove all of it. It was then irrigated thoroughly it was also deloculated thoroughly. Incision was packed with iodoform packing and patient was told remove it in 2 days. Patient was started on Keflex here in the emergency department and a prescription of Keflex was sent to his preferred pharmacy he was told return precautions signs symptoms of worsening infection to watch out for. Patient taught how to manage this at home return precautions and told to follow-up with primary care provider as needed. Departure - Departure Disposition: 01 Home, Self Care Clinical Impression: Infected sebaceous cyst of skin Instructions: ED Cyst Sebaceous Infec Abx Tx Prescriptions: cephALEXin [Keflex] 500 mg PO Q6H 5 Days #28 cap Comments: I have incised and drained the sebaceous cyst on your back. We have started you on an antibiotic called Keflex here in the emergency department you will take this 4 times a day for 5 days. Remove the packing in 2 days so on 06/24. Change the dressing twice a day and look for worsening signs and symptoms of infection which include worsening redness worsening swelling, significant amount of purulent drainage that is yellow or green, fevers or chills or any other concerning symptoms. If you are starting to notice any signs or symptoms of infection please come back to the emergency department for further evaluation. Please follow-up with your primary care provider and keep in mind that the sebaceous cysts are very common to recur as it is very difficult to fully remove the sac of the cyst. Forms: PCP List Discharge Date/Time: 06/23/23 15:37
[2023-06-23] MEDS: cephALEXin 250 MG CAPSULE PO STA (15:30)
[2023-06-23 15:43] VITALS: BP 131/68
== END 2023-06-23 15:37 | disposition home or self-care (01) ==
LOC: ED 12:56
DX: L72.3 Sebaceous cyst (principal); F17.200 Nicotine dependence, unspecified, uncomplicated
CPT/HCPCS: 10061; 99283; A9270

== ENCOUNTER 2023-09-02 14:24 | Outpatient (CLI) | payer MEDICAID | END 2023-09-02 14:25 | disposition home or self-care (01) | LOC: DI 14:24 | PROVIDERS: ATTEND Physician Assistant Medical | DX: R06.09 Other forms of dyspnea (principal) | CPT/HCPCS: 93307 ==

== ENCOUNTER 2023-09-18 07:00 | Outpatient (CLI) | payer MEDICAID | END 2023-09-18 23:59 | disposition home or self-care (01) | LOC: LAB.S 07:00 | PROVIDERS: ATTEND Registered Nurse | DX: L03.90 Cellulitis, unspecified (principal) | CPT/HCPCS: 87070; 87205 ==

== ENCOUNTER 2023-09-18 07:00 | Outpatient (CLI) | payer MEDICAID ==
--- NOTE | 2023-09-18 16:58 | XRAY Report ---
PROCEDURE: Chest 2V INDICATIONS: DYSPNEA ON EXERTION TECHNIQUE: 2 views of the chest were acquired. COMPARISON: None. FINDINGS: Surgical changes and devices: None. Lungs and pleura: Mild right infrahilar alveolar opacity. No pleural effusion or pneumothorax. Mildl y hyperexpanded lungs. Mediastinum: Mediastinal contours appear normal. Heart size is normal. Bones and chest wall: No suspicious bony lesions. Overlying soft tissues appear unremarkable. IMPRESSION: Minor right infrahilar alveolar opacity not previously present. Possible infection, inflammation, asp iration. Reviewed by: Kenya Werner MD on 09/18/2023 4:57 PM PDT Approved by: Kenya Werner MD on 09/18/2023 4:57 PM PDT Station ID: [id number]
== END 2023-09-18 23:59 | disposition home or self-care (01) ==
LOC: DI.S 07:00
PROVIDERS: ATTEND Registered Nurse
DX: R91.8 Other nonspecific abnormal finding of lung field (principal)
CPT/HCPCS: 87070; 87205